=== PATIENT | female | born 1975 | race Caucasian/White ===

== ENCOUNTER 2018-11-16 21:08 | Emergency (ER) | payer OTHER ==
[2018-11-16] MEDS ORDERED: Sodium Chloride 0.9% 1,000 ML IV ONE (21:25)
[2018-11-16] MEDS ORDERED: Ondansetron 4 MG/2 ML SDV IVPUSH ONE (21:25)
--- NOTE | 2018-11-16 21:27 | EDM.PDOC ---
ED HPI GENERAL MEDICAL PROBLEM - General Chief Complaint: Abdominal Pain Stated Complaint: PAIN RIGHT SIDE Time Seen by Provider: 11/16/18 21:14 Source of Information: Reports: Patient History Limitations: Reports: No Limitations - History of Present Illness INITIAL COMMENTS - FREE TEXT/NARRATIVE: HISTORY AND PHYSICAL: History of present illness: Patient is a 43-year-old female who presents to the emergency room today with complaints of right upper abdominal pain, nausea and vomiting since 1 PM. Patient states that she does have a history of gallstones and is concerned that her pain is related to recall bladder.Patient denies any fever, chills, headache , change in vision, syncope or near syncope. Denies any chest pain, back pain, shortness of breath or cough. Denies any diarrhea, constipation or dysuria. Has not noted any blood in urine or stool. Patient has been eating and drinking appropriately. Review of systems: As per history of present illness and below otherwise all systems reviewed and negative. Past medical history: As per history of present illness and as reviewed below otherwise noncontributory. Surgical history: As per history of present illness and as reviewed below otherwise noncontributory. Social history: See social history for further information Family history: As per history of present illness and as reviewed below otherwise noncontributory. Physical exam: General: Well-developed and well-nourished 43-year-old female. Alert and oriented. Nontoxic appearing and in no acute distress. HEENT: Atraumatic, normocephalic, pupils equal and reactive bilaterally, negative for conjunctival pallor or scleral icterus, mucous membranes moist, TMs normal bilaterally, throat clear, neck supple, nontender, trachea midline. No drooling or trismus noted. No meningeal signs. No hot potato voice noted. Lungs: Clear to auscultation, breath sounds equal bilaterally, chest nontender. Heart: S1S2, regular rate and rhythm without overt murmur Abdomen: Soft, nondistended, nontender. Negative for masses or hepatosplenomegaly. Negative for costovertebral tenderness. Pelvis: Stable nontender. Skin: Intact, warm, dry. No lesions or rashes noted. Extremities: Atraumatic, moves all extremities per self without difficulty or deficits, negative for cords or calf pain. Neurovascular unremarkable. Neuro: Awake, alert, oriented. Cranial nerves II through XII unremarkable. Cerebellum unremarkable. Motor and sensory unremarkable throughout. Exam nonfocal. Notes: And does have a slightly elevated white count. CT shows cholelithiasis without cholecystitis. Dr. Eng our general surgeon was contacted on this case and he is agreeable that this patient can follow-up with pain management and call the office on Sunday. Supportive care measures were reviewed and discussed. Voices understanding and is agreeable to plan of care. Denies any further questions or concerns at this time. Diagnostics: CBC, CMP, UA, CT abd/pelvis Therapeutics: IV fluids, Zofran, Morphine Prescription: [place] #30 Zofran Impression: Cholelithiasis Plan: 1. Low fat diet until you see the general surgeon. 2. Tylenol and/or ibuprofen as needed for pain management. [place] for moderate to severe pain. This medication may cause drowsiness a do not take it while driving or needing to be functioning outside of the house. Zofran has been prescribed for nausea management. 3. Please call the general surgeon's office on Sunday to set up a follow-up appointment. Return to the ED as needed and as discussed. Definitive disposition and diagnosis as appropriate pending reevaluation and review of above. Abdomen Pain Score (Numeric/FACES): 5 - Related Data Allergies Allergy/AdvReac Type Severity Reaction Status Date / Time No Known Allergies Allergy Verified 11/16/18 21:17 Home Meds: Home Meds . 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 ED EXAM, GI/ABD - Physical Exam Exam: See Below (See dictation) Course - Vital Signs Last Recorded V/S: Last Vital Signs Temp 96.9 F 11/16/18 22:13 Pulse 80 11/16/18 22:13 Resp 16 11/16/18 22:13 BP 161/83 H 11/16/18 22:13 Pulse Ox 99 11/16/18 22:13 - Orders/Labs/Meds Labs: Laboratory Tests 11/16/18 11/16/18 11/16/18 Range/Units 21:22 21:45 21:45 WBC 12.30 H (4.0-11.0) K/uL RBC 4.94 (4.30-5.90) M/uL Hgb 13.4 (12.0-16.0) g/dL Hct 41.3 (36.0-46.0) % MCV 83.6 (80.0-98.0) fL MCH 27.1 (27.0-32.0) pg MCHC 32.4 (31.0-37.0) g/dL RDW Std Deviation 41.4 (28.0-62.0) fl RDW Coeff of Nava 14 (11.0-15.0) % Plt Count 332 (150-400) K/uL MPV 9.20 (7.40-12.00) fL Neut % (Auto) 75.1 (48.0-80.0) % Lymph % (Auto) 17.1 (16.0-40.0) % Hancock % (Auto) 6.3 (0.0-15.0) % Eos % (Auto) 1.3 (0.0-7.0) % Baso % (Auto) 0.2 (0.0-1.5) % Neut # (Auto) 9.2 H (1.4-5.7) K/uL Lymph # (Auto) 2.1 (0.6-2.4) K/uL Hancock # (Auto) 0.8 (0.0-0.8) K/uL Eos # (Auto) 0.2 (0.0-0.7) K/uL Baso # (Auto) 0.0 (0.0-0.1) K/uL Nucleated RBC % 0.0 /100WBC Nucleated RBCs # 0 K/uL Sodium 141 (136-145) mmol/L Potassium 3.9 (3.5-5.1) mmol/L Chloride 106 (98-107) mmol/L Carbon Dioxide 21.6 (21.0-32.0) mmol/L BUN 9 (7.0-18.0) mg/dL Creatinine 0.8 (0.6-1.0) mg/dL Est Cr Clr Drug Dosing 92.81 mL/min Estimated GFR (MDRD) > 60.0 ml/min Glucose 101 (74-106) mg/dL Calcium 8.7 (8.5-10.1) mg/dL Total Bilirubin 0.6 (0.2-1.0) mg/dL AST 63 H (15-37) IU/L ALT 48 (14-63) IU/L Alkaline Phosphatase 110 (46-116) U/L Total Protein 7.2 (6.4-8.2) g/dL Albumin 3.6 (3.4-5.0) g/dL Globulin 3.6 (2.6-4.0) g/dL Albumin/Globulin Ratio 1.0 (0.9-1.6) Lipase 397 H (73-393) U/L Urine Color YELLOW Urine Appearance SLT CLOUDY Urine pH 5.5 (5.0-8.0) Ur Specific Valdez >= 1.030 (1.001-1.035) Urine Protein NEGATIVE (NEGATIVE) mg/dL Urine Glucose (UA) NEGATIVE (NEGATIVE) mg/dL Urine Ketones NEGATIVE (NEGATIVE) mg/dL Urine Occult Blood NEGATIVE (NEGATIVE) Urine Nitrite NEGATIVE (NEGATIVE) Urine Bilirubin NEGATIVE (NEGATIVE) Urine Urobilinogen 0.2 (<2.0) EU/dL Ur Leukocyte Esterase NEGATIVE (NEGATIVE) Meds: Medications Discontinued Medications Generic Name Dose Route Start Last Admin Trade Name Freq PRN Reason Stop Dose Admin Sodium Chloride 1,000 mls @ 999 mls/hr 11/16/18 21:25 11/16/18 21:45 Normal Saline IV 11/16/18 22:25 999 mls/hr STAT ONE Administration Morphine Sulfate 2 mg 11/16/18 21:29 Morphine IVPUSH 11/16/18 21:30 ONETIME ONE Ondansetron HCl 4 mg 11/16/18 21:25 11/16/18 21:47 Zofran IVPUSH 11/16/18 21:26 4 mg ONETIME ONE Administration Departure - Departure Time of Disposition: 23:26 Disposition: Home, Self-Care 01 Clinical Impression: Cholelithiasis Qualifiers: Cholelithiasis location: gallbladder Cholecystitis presence: without cholecystitis Biliary obstruction: without biliary obstruction Qualified Code(s) : K80.20 - Calculus of gallbladder without cholecystitis without obstruction - Discharge Information Instructions: Cholelithiasis, [id number] Referrals: Taz Cummings MD [Primary Care Provider] - Forms: ED Department Discharge Additional Instructions: The following information is given to patients seen in the emergency department who are being discharged to home. This information is to outline your options for follow-up care. We provide all patients seen in our emergency department with a follow-up referral. The need for follow-up, as well as the timing and circumstances, are variable depending upon the specifics of your emergency department visit. If you don't have a primary care physician on staff, we will provide you with a referral. We always advise you to contact your personal physician following an emergency department visit to inform them of the circumstance of the visit and for follow-up with them and/or the need for any referrals to a consulting specialist. The emergency department will also refer you to a specialist when appropriate. This referral assures that you have the opportunity for follow-up care with a specialist. All of these measure are taken in an effort to provide you with optimal care, which includes your follow-up. Under all circumstances we always encourage you to contact your private physician who remains a resource for coordinating your care. When calling for follow-up care, please make the office aware that this follow-up is from your recent emergency room visit. If for any reason you are refused follow-up, please contact the [facility] Emergency Department at and asked to speak to the emergency department charge nurse. [facility] [address] [place] [id number] [facility] - General Surgery Professional Building [address] [place] [address], [address] [place] [address] 1. Low fat diet until you see the general surgeon. 2. Tylenol and/or ibuprofen as needed for pain management. [place] for moderate to severe pain. This medication may cause drowsiness a do not take it while driving or needing to be functioning outside of the house. Zofran has been prescribed for nausea management. 3. Please call the general surgeon's office on Sunday to set up a follow-up appointment. Return to the ED as needed and as discussed.
[2018-11-16] MEDS ORDERED: Morphine 2 MG/ML Syringe IVPUSH ONE (21:29)
[2018-11-16 22:17] LABS: BLOOD UREA NITROGEN,BUN 9 mg/dL (7.0-18.0); CARBON DIOXIDE,CO2 21.6 mmol/L (21.0-32.0); CHLORIDE,CL 106 mmol/L (98-107); GLUCOSE RANDOM 101 mg/dL (74-106); LIPASE 397 U/L (73-393); POTASSIUM,K 3.9 mmol/L (3.5-5.1); SODIUM,NA 141 mmol/L (136-145)
--- NOTE | 2018-11-16 23:17 | US ---
Exam: US right upper quadrant Comparison: None available. Indication: Right upper quadrant pain. Technique: Multiple grayscale and color Doppler images of the right upper quadrant are acquired. Findings: Liver: Normal liver echogenicity and contour. No liver lesions. No intra or extrahepatic biliary dilation. Common bile duct measures 3 mm. Gallbladder: Echogenic foci layer dependently in the gallbladder likely small stones. No gallbladder wall thickening. No pericholecystic fluid. No sonographic Vizcarra`s sign. Pancreas: Visualized portions are unremarkable. Right kidney: Limited views of the right kidney show no pelvocaliectasis. Right kidney measures 9.2 cm. Impression: 1. Cholelithiasis. No sonographic evidence of cholecystitis. 2. No cause of right upper quadrant pain identified. Dictated by Luis Priest MD @ Nov 16 2018 11:13PM Signed by Dr. Luis Priest @ Nov 16 2018 11:16PM
[2018-11-16 23:26] VITALS: BP 175/82
== END 2018-11-16 23:36 | disposition home or self-care (01) ==
LOC: MW.ED 21:08
DX: K80.20 Calculus of gallbladder without cholecystitis without obstruction (principal)
CPT/HCPCS: 36415; 76705; 80053; 81003; 83690; 85025; 96361; 96374; 99284; J2405; J7040

== ENCOUNTER 2018-12-02 06:31 | Day surgery (SDC) | payer OTHER ==
[~2018-12-02 06:31] MED LIST: Lactated Ringers 1,000 ML IV SCH; cefOXitin 2 GM in Premix Bag 1 BAG IV SCH
[2018-12-02] MEDS ORDERED: Scopolamine 1.5 MG Transdermal Patch TRDERM PRN (07:08)
--- NOTE | 2018-12-02 07:11 | PCM.PREANE ---
Preanesthetic Assessment - Anesthesia/Transfusion/Family Hx Anesthesia History: Prior Anesthesia Without Reaction Family History of Anesthesia Reaction: No Transfusion History: No Prior Transfusion(s) Intubation History: Unknown - Review of Systems General: No Symptoms Pulmonary: No Symptoms Cardiovascular: No Symptoms Gastrointestinal: Abdominal Pain Neurological: No Symptoms Other: Reports: None - Physical Assessment Vital Signs: Last Vital Signs Temp 36.5 C 12/02/18 06:45 Pulse 69 12/02/18 06:45 Resp 16 12/02/18 06:45 BP 173/82 H 12/02/18 06:45 Pulse Ox 99 12/02/18 06:45 Height: 5 ft 9 in Weight: 107.955 kg ASA Class: 2 Mental Status: Alert & Oriented x3 Airway Class: Mallampati = 3 Dentition: Reports: Normal Dentition, Partial (removed), Missing Tooth/Teeth ( rt. upper x1, lower front x1) Thyro-Mental Finger Breadths: 3 Mouth Opening Finger Breadths: 2 ROM/Head Extension: Full Lungs: Clear to Auscultation, Normal Respiratory Effort Cardiovascular: Regular Rate, Regular Rhythm - Allergies Allergies/Adverse Reactions: Allergies Allergy/AdvReac Type Severity Reaction Status Date / Time No Known Allergies Allergy Verified 11/28/18 10:40 - Blood Blood Available: No - Anesthesia Plan Pre-Op Medication Ordered: None - Acknowledgements Anesthesia Type Planned: General Anesthesia Pt an Appropriate Candidate for the Planned Anesthesia: Yes Alternatives and Risks of Anesthesia Discussed w Pt/Guardian: Yes Pt/Guardian Understands and Agrees with Anesthesia Plan: Yes PreAnesthesia Questionnaire HEENT History: Reports: Other (See Below) Other HEENT History: wears glasses/contacts Cardiovascular History: Reports: None Respiratory History: Reports: Other (See Below) Other Respiratory History: has had multiple episodes of Bronchitis- uses and inhaler when sick- not otherwise Gastrointestinal History: Reports: Cholelithiasis, GERD Other Gastrointestinal History: GERD in the past- not recently- has stopped Omeprazole Genitourinary History: Reports: None 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 Musculoskeletal History: Reports: Fracture Other Musculoskeletal History: hx of fx finger Neurological History: Reports: Concussion Psychiatric History: Reports: None Endocrine/Metabolic History: Reports: Obesity/BMI 30+ Hematologic History: Reports: None Immunologic History: Reports: None Oncologic (Cancer) History: Reports: None Dermatologic History: Reports: Other (See Below) Other Dermatologic History: hx of Cellulitis left leg with superficial blood clot- took baby aspirin for awhile- not currently - Infectious Disease History Infectious Disease History: Reports: None - Past Surgical History Head Surgeries/Procedures: Reports: None HEENT Surgical History: Reports: Oral Surgery Other HEENT Surgeries/Procedures: wisdom teeth and other teeth removed GI Surgical History: Reports: None Female Surgical History: Reports: Breast Reduction - SUBSTANCE USE Smoking Status *Q: Never Smoker Recreational Drug Use History: No - HOME MEDS Home Medications: Home Meds Omeprazole 40 mg PO DAILY 11/28/18 [History] - CURRENT (IN HOUSE) MEDS Current Meds: Current Medications Cefoxitin Sodium 2 gm/ Premix 50 mls @ 100 mls/hr IV ONCALL [facility] Stop: 12/02/18 12:00 Lactated Ringer's (Ringers, Lactated) 1,000 mls @ 125 mls/hr IV ASDIRECTED [facility] Last Admin: 12/02/18 06:50 Dose: 125 mls/hr
[2018-12-02] MEDS ORDERED: Ondansetron 4 MG/2 ML SDV ONE (07:30)
[2018-12-02] MEDS ORDERED: Propofol 200 MG/20 ML SDV ONE ×2 (07:31→07:32)
[2018-12-02] MEDS ORDERED: ceFAZolin 1 GM Vial ONE (07:31)
[2018-12-02] MEDS ORDERED: Ketorolac 30 MG/ML SDV ONE (07:31)
[2018-12-02] MEDS ORDERED: Morphine 10 MG/ML Syringe ONE (07:31)
[2018-12-02] MEDS ORDERED: Midazolam 1 MG/ML 2 ML SDV ONE (07:31)
[2018-12-02] MEDS ORDERED: Rocuronium 100 MG/10 ML Syringe ONE (07:31)
[2018-12-02] MEDS ORDERED: Bupivacaine 0.5% 30 ML SDV ONE (07:31)
[2018-12-02] MEDS ORDERED: Glycopyrrolate 0.2 MG/ML SDV ONE (07:31)
[2018-12-02] MEDS ORDERED: fentaNYL 250 MCG/5 ML SDV ONE (07:32)
[2018-12-02] MEDS ORDERED: Sugammadex Sodium 200 MG/2 ML VIAL ONE (07:43)
[2018-12-02] MEDS ORDERED: Sodium Chloride 0.9% 20 ML ONE (07:53)
[2018-12-02] MEDS ORDERED: cefOXitin 1 GM Vial ONE (07:53)
[2018-12-02] MEDS ORDERED: Acetaminophen/HYDROcodone 325-5 MG Tab PO PRN (09:28)
[2018-12-02] MEDS ORDERED: Morphine 10 MG/ML Syringe IVPUSH PRN (09:28)
[2018-12-02] MEDS ORDERED: fentaNYL 100 MCG/2 ML SDV IVPUSH PRN (09:30)
[2018-12-02] MEDS ORDERED: Lactated Ringers 1,000 ML IV SCH (09:30)
[2018-12-02] MEDS ORDERED: HYDROmorphone 2 MG/ML Syringe IVPUSH ONE (09:31)
--- NOTE | 2018-12-02 09:36 | PCM.OPNOTE ---
- General Post-Op/Procedure Note Date of Surgery/Procedure: 12/02/18 Operative Procedure(s): Laparoscopic cholecystectomy Pre Op Diagnosis: Symptomatic cholelithiasis Post-Op Diagnosis: Symptomatic cholelithiasis Anesthesia Technique: General ET Tube (ASA II) Primary Surgeon: Marc Eng Elevated Guard: Maile Adler Fluid Replacement, Intraop: 1,350 Output, Urine Amount: 125 EBL in mLs: 10 Condition: Good Free Text/Narrative:: DICTATION [id number] CPT CODE 88799
--- NOTE | 2018-12-02 10:08 | PCM.POSTAN ---
POST ANESTHESIA ASSESSMENT - MENTAL STATUS Mental Status: Alert, Oriented - VITAL SIGNS Vital Signs: Last Vital Signs Temp 36.6 C 12/02/18 09:27 Pulse 59 L 12/02/18 09:47 Resp 15 12/02/18 09:47 BP 135/60 12/02/18 09:47 Pulse Ox 95 12/02/18 09:47 - RESPIRATORY Respiratory Status: Respiratory Rate WNL, Airway Patent, O2 Saturation Stable - CARDIOVASCULAR CV Status: Pulse Rate WNL, Blood Pressure Stable - GASTROINTESTINAL GI Status: No Symptoms - PAIN Pain Score: 0 - POST OP HYDRATION Hydration Status: Adequate & Stable - OBSERVATIONS Free Text/Narrative:: no anesthesia problems
--- NOTE | 2018-12-02 11:05 | OR ---
SURGEON: Marc Eng M.D. DATE OF PROCEDURE: 12/02/2018 OPERATION PERFORMED: Laparoscopic cholecystectomy. PRIMARY SURGEON: Marc Eng MD. SUTURE GAUGER: Bacteriology Teacher: Bárbara Adler, stonecutter assistant OR tech student. ANESTHESIA: General endotracheal. ASA CLASSIFICATION: II. PREOPERATIVE DIAGNOSIS: Symptomatic cholelithiasis. POSTOPERATIVE DIAGNOSIS: Symptomatic cholelithiasis. ESTIMATED BLOOD LOSS: 10 mL. INTRAOPERATIVE FLUID REPLACEMENT: 1350 mL of crystalloid. INTRAOPERATIVE URINARY OUTPUT: 125 mL. DESCRIPTION OF PROCEDURE: The patient was taken to the operating room and placed on the operating table in the supine position. Time-out was called for appropriate identification of the patient and procedure. Thigh-high TEDs and sequential compression boots were placed. Following satisfactory attainment of general endotracheal anesthesia, a Cardenas catheter was placed in the patient's urinary bladder. The abdomen was prepped with DuraPrep solution and sterile drapes were applied. Skin just below the umbilicus was infiltrated with 0.5% Marcaine solution. Skin incision was made and deepened through the subcutaneous tissue obtaining hemostasis with the use of electrocautery. The Veress needle was introduced into the peritoneal cavity. Saline drop test was positive. Carbon dioxide pneumoperitoneum was established with the release set at 13 cm of water. Once a satisfactory pneumoperitoneum was established, the Veress needle was removed and 5 mm camera and port were placed through the infraumbilical incision. The patient was now positioned with her feet down and rolled to the left. Under camera vision, 12 mm subxiphoid, 5 mm midclavicular, and 5 mm anterior axillary ports were placed. Each incision had preemptively been infiltrated with 0.5% Marcaine solution. The gallbladder was grasped, the cholecystohepatic triangle was identified and dissected free. Cystic duct was identified and there was a small stone in the cystic duct just distal to the cystic duct junction with the gallbladder. Once the cystic duct was mobilized and good critical view obtained, the cystic duct was doubly clipped proximally and distally with one clip placed below the stone to keep it from falling out. Dissection was then carried up to the cystic artery, which was also hemoclipped proximally and distally before division with the laparoscopic Metzenbaum scissors. The gallbladder was then dissected away from its bed using electrocautery. No bile or stones were spilled. Once the gallbladder was amputated, this was placed in an Endo Catch which remained in situ. The bed of the gallbladder was inspected and small bleeding sites were electrocoagulated. Surgicel was placed into the bed of the gallbladder. The right upper quadrant was irrigated with sterile saline solution. All fluid was aspirated. The right hemidiaphragm was then irrigated with 250 mL of saline containing 20 mL of 0.5% Marcaine solution. All lap fluid was left in place. The 12 mm port was removed followed by removal of the Endo Catch. Under camera vision, the 5 mm midclavicular and anterior axillary ports were removed and finally the infraumbilical camera and port were removed. Wounds were inspected for hemostasis and small bleeding sites were electrocoagulated. The patient was now positioned in a neutral position. The infraumbilical and subxiphoid incisions were closed in 2 layers approximating the subcutaneous tissue with 3-0 Vicryl. All incisions were closed with subcuticular 4-0 Monocryl and Steri- Stripped. Sterile Tegaderm pads were placed as a dressing. Sponge, needle, and instrument counts were all correct. Prior to emergence from anesthesia, the Cardenas catheter was removed. Following emergence from anesthesia and extubation, the patient was taken to recovery room in stable condition. STEPHEN / VIDYA /[id number]
[2018-12-02 11:13] VITALS: BP 134/65; PULSE 64
--- NOTE | 2018-12-02 11:15 | PCM48HPAN ---
Post Anesthesia Note - EVALUATION WITHIN 48HRS OF ANESTHETIC Vital Signs in Normal Range: Yes Patient Participated in Evaluation: Yes Respiratory Function Stable: Yes Airway Patent: Yes Cardiovascular Function Stable: Yes Hydration Status Stable: Yes Pain Control Satisfactory: Yes Nausea and Vomiting Control Satisfactory: Yes Mental Status Recovered: Yes Vital Signs: Last Vital Signs Temp 36.4 C 12/02/18 09:50 Pulse 64 12/02/18 11:05 Resp 14 12/02/18 11:05 BP 134/65 12/02/18 11:05 Pulse Ox 95 12/02/18 11:05 - COMMENTS/OBSERVATIONS Free Text/Narrative:: no anesthesia problems
== END 2018-12-02 11:30 | disposition home or self-care (01) ==
LOC: MW.SDS 06:31
PROVIDERS: ATTEND Surgery
DX: K80.10 Calculus of gallbladder with chronic cholecystitis without obstruction (principal); K21.9 Gastro-esophageal reflux disease without esophagitis; E66.9 Obesity, unspecified; Z68.35 Body mass index [BMI] 35.0-35.9, adult; Z79.899 Other long term (current) drug therapy
CPT/HCPCS: 47562; 81025; A9270; J0131; J0694; J1885; J2250; J2270; J2405; J2704; J3010; J3490; J7120; 88304; J0690

== ENCOUNTER 2021-08-26 18:23 | Emergency (ER) | payer OTHER ==
[2021-08-26 19:53] VITALS: BP 161/79; PULSE 91
== END 2021-08-26 19:53 | disposition home or self-care (01) ==
LOC: MW.ED 18:23
DX: S90.31XA Contusion of right foot, initial encounter (principal); I10 Essential (primary) hypertension; K21.9 Gastro-esophageal reflux disease without esophagitis; E66.9 Obesity, unspecified; Z79.899 Other long term (current) drug therapy; Z68.38 Body mass index [BMI] 38.0-38.9, adult; W20.8XXA Other cause of strike by thrown, projected or falling object, initial encounter
CPT/HCPCS: 73630-26-RT; 73630-RT; 99283